=== PATIENT | female | born 2000 | race Caucasian/White ===

== ENCOUNTER 2025-07-06 13:45 | Emergency (ER) | payer OTHER ==
[~2025-07-06] VITALS: Ht 160 cm; Wt 69.8 kg
[2025-07-06 14:36] LABS: BASOPHILS ABSOLUTE AUTO 0.03 K/mm3 (0.00-0.23); BASOPHILS PERCENT AUTO 0 % (0-2); EOSINOPHILS ABSOLUTE AUTO 0.14 K/mm3 (0.00-0.68); EOSINOPHILS PERCENT AUTO 1 % (0-6); Hematocrit 32.2 % (33.0-51.0); Hemoglobin 11.0 g/dL (11.5-16.0); IMMATURE GRAN ABSOLUTE AUTO 0.08 K/mm3 (0.00-0.10); IMMATURE GRAN PERCENT AUTO 1 % (0-1); LYMPHOCYTES ABSOLUTE AUTO 1.92 K/mm3 (0.84-5.20); LYMPHOCYTES PERCENT AUTO 17 % (21-46); MONOCYTES ABSOLUTE AUTO 0.75 K/mm3 (0.16-1.47); MONOCYTES PERCENT AUTO 7 % (4-13); Mean Corpuscular HGB Conc 34.2 g/dL (31.5-36.5); Mean Corpuscular Volume 89 fL (80-100); NEUTROPHILS ABSOLUTE AUTO 8.21 K/mm3 (1.96-9.15); NEUTROPHILS PERCENT AUTO 74 % (41-73); NRBC ABSOLUTE 0.00 K/mm3 (0.00-0.02); NRBC Auto 0.0 /100 WBC (0.0-0.2); Platelet Count 199 K/mm3 (150-400); RDW Coefficient Variation 12.2 % (11.7-14.2); RDW Standard Deviation 39.4 fL (35.1-46.3)
[2025-07-06 14:57] LABS: Alanine Aminotransfer (ALT/SGP 16.0 U/L (12-78); Albumin, Blood 2.6 g/dL (3.4-5.0); Albumin/Globulin Ratio 0.6 (0.8-1.8); Anion Gap 7.0 mmol/L (3-11); Aspartate Aminotrans (AST/SGOT 19.0 U/L (12-37); Bilirubin, Total 0.3 mg/dL (0.1-1.0); Blood Urea Nitrogen 7.0 mg/dL (8-24); CO2, Blood 27.0 mmol/L (21-32); Calcium, Blood 8.6 mg/dL (8.5-10.1); Chloride, Blood 105.0 mmol/L (98-108); Creatinine, Blood 0.46 mg/dL (0.40-1.00); Globulin, Blood 4.4 g/dL (2.2-4.0); Glucose, Blood 84.0 mg/dL (70-99); Potassium, Blood 3.5 mmol/L (3.5-5.5); Sodium, Blood 135.0 mmol/L (136-145); Total Protein, Blood 7.0 g/dL (6.4-8.2)
== END 2025-07-06 15:57 | disposition home or self-care (01) ==
LOC: ER 13:45
PROVIDERS: Emergency Medicine
DX: O26.892 Other specified pregnancy related conditions, second trimester (principal); R60.0 Localized edema; Z3A.28 28 weeks gestation of pregnancy
CPT/HCPCS: 80053; 85025; 93971; 99284-25

== ENCOUNTER 2025-09-20 00:34 | Inpatient (IN) | payer OTHER ==
[~2025-09-20] VITALS: Ht 165.1 cm; Wt 73.6 kg
[2025-09-20] VITALS (35 sets, daily range): BP systolic 95–132; BP diastolic 50–78
[2025-09-20] MEDS ORDERED: Methylergonovine Maleate 0.2MG / ML 1ML Amp IM PRN ×2 (01:15→12:05)
[2025-09-20] MEDS ORDERED: Carboprost Tromethamine 250 MCG/ML 1ML Amp IM PRN (01:15)
[2025-09-20] MEDS ORDERED: Tranexamic Acid 100 ML IV SCH (01:15)
[2025-09-20] MEDS ORDERED: Ondansetron HCl 2 MG / ML 2ML Vial IV PRN (01:15)
[2025-09-20] MEDS ORDERED: Oxytocin 10 Unit / ML Vial IM PRN (01:15)
[2025-09-20] MEDS ORDERED: OXYTOCIN/RINGER'S LACTATE 500 ML IV PRN (01:15)
[2025-09-20] MEDS ORDERED: ePHEDrine Sulfate 50 MG/ML 1ML Injection XX PRN (01:20)
[2025-09-20] MEDS ORDERED: FentaNYL 2mcg/ml-Bup 0.1% Epd 250 ML EPI PRN (01:20)
[2025-09-20 01:47] LABS: BASOPHILS ABSOLUTE AUTO 0.04 K/mm3 (0.00-0.23); BASOPHILS PERCENT AUTO 0 % (0-2); EOSINOPHILS ABSOLUTE AUTO 0.04 K/mm3 (0.00-0.68); EOSINOPHILS PERCENT AUTO 0 % (0-6); Hematocrit 31.8 % (33.0-51.0); Hemoglobin 10.2 g/dL (11.5-16.0); IMMATURE GRAN ABSOLUTE AUTO 0.15 K/mm3 (0.00-0.10); IMMATURE GRAN PERCENT AUTO 1 % (0-1); LYMPHOCYTES ABSOLUTE AUTO 1.66 K/mm3 (0.84-5.20); LYMPHOCYTES PERCENT AUTO 11 % (21-46); MONOCYTES ABSOLUTE AUTO 1.18 K/mm3 (0.16-1.47); MONOCYTES PERCENT AUTO 7 % (4-13); Mean Corpuscular HGB Conc 32.1 g/dL (31.5-36.5); Mean Corpuscular Volume 82 fL (80-100); NEUTROPHILS ABSOLUTE AUTO 12.81 K/mm3 (1.96-9.15); NEUTROPHILS PERCENT AUTO 81 % (41-73); NRBC ABSOLUTE 0.00 K/mm3 (0.00-0.02); NRBC Auto 0.0 /100 WBC (0.0-0.2); Platelet Count 182 K/mm3 (150-400); RDW Coefficient Variation 14.4 % (11.7-14.2); RDW Standard Deviation 43.3 fL (35.1-46.3)
[2025-09-20] MEDS ORDERED: FentaNYL Citrate 50 MCG/ML 2 ML Injection ONE (02:50)
[2025-09-20] MEDS ORDERED: DiphenhydrAMINE HCl 50 MG/ML 1ML Vial IV PRN (05:10)
[2025-09-20] MEDS ORDERED: Acetaminophen/Codeine 300-30 mg PO PRN (11:55)
[2025-09-20] MEDS ORDERED: Benzocaine Topical Anesthetic Spray 60GM TOP PRN (11:55)
[2025-09-20] MEDS ORDERED: OxyCODONE 5 mg/Acetamin 325 mg TABLET PO PRN (11:55)
[2025-09-20] MEDS ORDERED: Oxytocin 10 Unit / ML Vial IM ONE (11:55)
[2025-09-20] MEDS ORDERED: OXYTOCIN/RINGER'S LACTATE 500 ML IV SCH (11:55)
[2025-09-20] MEDS ORDERED: Witch Hazel/Glycerin PADS TOP PRN (12:00)
[2025-09-20] MEDS ORDERED: Rho(D) Immune Globulin 300 MCG / SYR IM ONE (12:00)
[2025-09-20] MEDS ORDERED: Ketorolac Tromethamine 30mg Vial IV PRN (12:00)
[2025-09-20] MEDS ORDERED: FLU VACC TS2025-26(6MOS UP)/PF 45 MCG/0.5 ML SYRINGE IM SCH (12:00)
[2025-09-21 06:28] LABS: BASOPHILS ABSOLUTE AUTO 0.05 K/mm3 (0.00-0.23); BASOPHILS PERCENT AUTO 0 % (0-2); EOSINOPHILS ABSOLUTE AUTO 0.10 K/mm3 (0.00-0.68); EOSINOPHILS PERCENT AUTO 1 % (0-6); Hematocrit 27.1 % (33.0-51.0); Hemoglobin 8.6 g/dL (11.5-16.0); IMMATURE GRAN ABSOLUTE AUTO 0.10 K/mm3 (0.00-0.10); IMMATURE GRAN PERCENT AUTO 1 % (0-1); LYMPHOCYTES ABSOLUTE AUTO 2.30 K/mm3 (0.84-5.20); LYMPHOCYTES PERCENT AUTO 18 % (21-46); MONOCYTES ABSOLUTE AUTO 1.31 K/mm3 (0.16-1.47); MONOCYTES PERCENT AUTO 11 % (4-13); Mean Corpuscular HGB Conc 31.7 g/dL (31.5-36.5); Mean Corpuscular Volume 84 fL (80-100); NEUTROPHILS ABSOLUTE AUTO 8.67 K/mm3 (1.96-9.15); NEUTROPHILS PERCENT AUTO 69 % (41-73); NRBC ABSOLUTE 0.00 K/mm3 (0.00-0.02); NRBC Auto 0.0 /100 WBC (0.0-0.2); Platelet Count 175 K/mm3 (150-400); RDW Coefficient Variation 14.5 % (11.7-14.2); RDW Standard Deviation 44.6 fL (35.1-46.3)
[2025-09-21 07:32] VITALS: BP 135/81
[2025-09-21] MEDS ORDERED: OxyCODONE 10/Acetamin 325 TABLET PO PRN ×2 (07:40→07:50)
--- NOTE | 2025-09-21 07:59 | NUR ---
PATIENT STATES PAIN 9/10 FOR VAGINAL PAIN AND PRESSURE, CARHART HERE AT BEDSIDE VAGINAL EXAM DONE, NOTHING REMARKABLE FOUND, PAIN MEDS ORDERED AND GIVEN WITH ICE PACK
[2025-09-21] MEDS ORDERED: Prenatal Vit/FE Fumarate/FA 1 Tab PO SCH (09:00)
[2025-09-21 11:32] VITALS: BP 116/73
--- NOTE | 2025-09-21 14:10 | NUR ---
MALINDA UPDATED OF PAIN AND LABS IV IRON ORDERED
[2025-09-21] MEDS ORDERED: OxyCODONE 5 mg/Acetamin 325 mg TABLET PO PRN (14:20)
[2025-09-21] MEDS ORDERED: Sod Ferric Gluc Complx/Sucrose 125 MG in NS 100 ML IV SCH (14:40)
[2025-09-21 15:10] VITALS: BP 111/66
[2025-09-21 19:53] VITALS: BP 116/68
[2025-09-21 23:35] VITALS: BP 103/58
[2025-09-22 04:02] VITALS: BP 108/67
[2025-09-22 07:55] VITALS: BP 114/66
[2025-09-22 14:15] VITALS: BP 104/68
--- NOTE | 2025-09-22 14:30 | NUR ---
No acute changes t/o shift. Printed instructions reviewed, teaching provided w/pt and SO. Questions answered to their satisfaction. ID bands matched w/nb. Pt d/c'd home ambulatory to care of SO.
== END 2025-09-22 14:45 | disposition home or self-care (01) | DRG 807 ==
LOC: OBS 00:34 → BC 00:35 → OBS 01:04 → BC 01:05
PROVIDERS: ADMIT Registered Nurse Community Health
PROC: 0KQM0ZZ Repair Perineum Muscle, Open Approach (ICD-10-PCS; principal; 2025-09-20)
PROC: 10E0XZZ Delivery of Products of Conception, External Approach (ICD-10-PCS; 2025-09-20)
PROC: 00HU33Z Insertion of Infusion Device into Spinal Canal, Percutaneous Approach (ICD-10-PCS; 2025-09-20)
PROC: 3E0R3BZ Introduction of Anesthetic Agent into Spinal Canal, Percutaneous Approach (ICD-10-PCS; 2025-09-20)
PROC: 10907ZC Drainage of Amniotic Fluid, Therapeutic from Products of Conception, Via Natural or Artificial Opening (ICD-10-PCS; 2025-09-20)
DX: O99.344 Other mental disorders complicating childbirth (principal); Z37.0 Single live birth; Z3A.39 39 weeks gestation of pregnancy; F41.9 Anxiety disorder, unspecified; F32.A Depression, unspecified; O70.1 Second degree perineal laceration during delivery; O90.81 Anemia of the puerperium
CPT/HCPCS: 36415; 51702; 81003; 85025; 86850; 86900; 86901; 90471; 90707; 96372; A9270; J1200; J1885; J2405; J2590; J2916; J7120